=== PATIENT | female | born 1990 | race Caucasian/White ===

== ENCOUNTER 2017-10-18 17:43 | Emergency (ER) | payer BC ==
[2017-10-18 20:03] LABS: ABS Basophils 0.1 10^3/ul (0-0.2); ABS Eosinophils 0.1 10^3/ul (0-0.6); ABS Lymphocytes 2.3 10^3/ul (1.0-4.8); ABS Monocytes 0.5 10^3/ul (0-0.8); ABS Neutrophils 5.3 10^3/ul (1.5-7.7); ABS Nucleated RBC 0 10^3/ul; Eosinophil % 1.5 % (0-6); Hematocrit 42 % (35-47); Hemoglobin 14.4 g/dl (12.0-16.0); Mean Corpuscular HGB Conc 34 g/dl (31-36); Mean Corpuscular Hemoglobin 29 pg (27-31); Mean Corpuscular Volume 85 fL (80-97); Nucleated Red Blood Cells % 0; Platelet Count 256 10^3/ul (150-450); Red Blood Count 4.97 10^6/ul (4.0-5.4); Red Cell Distribution Width 13 % (10.5-15); White Blood Count 8.4 10^3/ul (3.5-10.8)
[2017-10-18 20:19] LABS: EGFR Non-African American 91.3 (>60)
--- NOTE | 2017-10-18 21:29 | RAD ---
HISTORY: Headache, visual disturbance, papilledema COMPARISONS: None TECHNIQUE: The following sequences were obtained of the head: Sagittal T1-weighted images, axial T2-weighted images, axial FLAIR images, axial susceptibility weighted images, axial T1-weighted images. Additionally, axial diffusion-weighted images were obtained with calculated apparent diffusion coefficients. FINDINGS: HEMORRHAGE/INFARCT: There is no hemorrhage or acute infarct. MASSES/SHIFT: There is no mass or shift. EXTRA-AXIAL SPACES/MENINGES: There are no extra-axial fluid collections. SULCI AND VENTRICLES: The sulci and ventricles are normal in size and position for the patient's stated age. CEREBRUM: There are no focal parenchymal abnormalities. BRAINSTEM: There are no focal parenchymal abnormalities. CEREBELLUM: There are no focal parenchymal abnormalities. The cerebellar tonsils are normal in size and position. SELLA: The sella is normal. PINEAL: The pineal region is clear. CP ANGLE/TEMPORAL BONES: The labyrinthine structures are grossly normal. VESSELS: Normal flow-voids are noted within the visualized vertebral vasculature. DIFFUSION ABNORMALITIES: There are no diffusion abnormalities. PARANASAL SINUSES/MASTOIDS: The paranasal sinuses are clear. ORBITS: The optic nerves are not well evaluated on this generic brain protocol MRI; however, there is no appreciable abnormal signal within the visualized portion of the optic nerves. There is no retrobulbar mass. BONES AND SOFT TISSUE: No bone or soft tissue abnormalities are noted. OTHER: None IMPRESSION: NORMAL BRAIN
--- NOTE | 2017-10-18 21:32 | RAD ---
HISTORY: Headache, visual disturbance, papilledema COMPARISONS: MRI of the brain dated October 18, 2012 TECHNIQUE: Multiple 3-D phase contrast MR venography was performed, with multiple 3-D maximum intensity projection reconstructions. FINDINGS: VENOUS SINUSES: The venous sinuses are patent. There is no stenosis or occlusion. A filling defect of the right transverse sinus is felt to represent an arachnoid granulation. DEEP VEINS: The deep veins are patent. The internal cerebral veins are dominant over the basal veins of [place]. OTHER FINDINGS: None IMPRESSION: NO VENOUS SINUS THROMBOSIS OR OCCLUSION
--- NOTE | 2017-10-18 21:34 | RAD ---
HISTORY: Headache, visual disturbance, papilledema COMPARISONS: MRI of the brain dated October 18, 2014 TECHNIQUE: 3-D axial [id number] MR angiography was performed of the head to include the ute of Silva. Multiple 3-D maximum intensity projection reconstructions are also submitted for review. FINDINGS: RIGHT VERTEBRAL ARTERY: The distal right vertebral artery is unremarkable, without stenosis. LEFT VERTEBRAL ARTERY: The distal left vertebral artery is unremarkable, without stenosis. DOMINANCE: The vertebral arteries are codominant. DISTAL RIGHT CERVICAL INTERNAL CAROTID ARTERY: The distal right cervical internal carotid artery is unremarkable. DISTAL LEFT CERVICAL INTERNAL CAROTID ARTERY: The distal left cervical internal carotid artery is unremarkable. INTRACRANIAL CIRCULATION: There is no aneurysm, vascular malformation, occlusion, or stenosis of the visualized intracranial circulation. The anterior communicating artery complex is clear. Bilateral posterior communicating arteries are identified. OTHER FINDINGS: None IMPRESSION: NO ANEURYSM, VASCULAR MALFORMATION, OCCLUSION, OR STENOSIS OF THE VISUALIZED INTRACRANIAL CIRCULATION.
[2017-10-18] MEDS ORDERED: Lidocaine 2% PF * 5 ML VIAL ONE (22:34)
[2017-10-18] MEDS ORDERED: acetaZOLAMIDE TAB* 250 MG PO ONE (23:12)
--- NOTE | 2017-10-18 23:20 | ED ---
Marquez Rice Stephanie, scribed for Nickolas Gardner MD on 10/18/17 at 1944 . Throat Pain/Nasal Congestion - HPI Summary HPI Summary: The pt is a 26 y/o F presenting to the ED with c/o vision problems that began approximately 3 months ago. The pt states her symptoms began with migraines and nausea. She then began to develop vision changes in her R eye that would occur when standing up from a sitting position or initiated by change in light. She states her vision would begin to get fuzzy, appear as a cloud, and she would experience tunnel vision almost exclusively in her R eye but sometimes in her L eye that would last about 15 seconds to return to normal vision. She states she went to the eye doctor today who informed her that she had unspecified papilledema. The pt reports she was previously on prednisone to treat an allergic reaction to saldivar that began on September 06 2017. She reports hx of nausea at least 2x per week after dinner. She states a few weeks ago she experienced neck stiffness on her L side that lasted about 4 days. [facility] 10/11/17. The pt denies slurred speech, difficulty with ambulation, unsteady gait and LE and UE weakness. - History of Current Complaint Chief Complaint: EDEyeProblem Time Seen by Provider: 10/18/17 19:20 Hx Obtained From: Patient Onset/Duration: Gradual Onset, Lasting Weeks, Still Present Severity: Moderate - Allergies/Home Medications Allergies/Adverse Reactions: Allergies Allergy/AdvReac Type Severity Reaction Status Date / Time No Known Allergies Allergy Verified 01/10/14 10:49 Home Medications: Home Medications LevoCETirizine TAB (NF) [Xyzal TAB (NF)] 5 mg PO QPM 10/18/17 [History Confirmed 10/18/17] Minocycline (NF) 100 mg PO BID WITH MEALS 10/18/17 [History Confirmed 10/18/17] metFORMIN* [Glucophage 500 MG TAB *] 1,000 mg PO BID 10/18/17 [History Confirmed 10/18/17] PMH/Surg Hx/FS Hx/Imm Hx Endocrine/Hematology History: Reports: Hx Anemia - ON IRON FOR Denies: Hx Diabetes, Hx Thyroid Disease Cardiovascular History: Denies: Hx Hypertension Respiratory History: Reports: Hx Pneumonia Denies: Hx Asthma, Hx Chronic Obstructive Pulmonary Disease (COPD) GI History: Denies: Hx Ulcer Musculoskeletal History: Reports: Hx Back Problems Sensory History: Reports: Hx Contacts or Glasses - WILL WEAR GLASSES DAY OF SURGERY Denies: Hx Hearing Aid Opthamlomology History: Reports: Hx Contacts or Glasses - WILL WEAR GLASSES DAY OF SURGERY Psychiatric History: Reports: Hx Depression - NO MEDICATION FOR - Surgical History Surgery Procedure, Year, and Place: rt wrist surgery-[facility] Hx Anesthesia Reactions: No - Immunization History Date of Tetanus Vaccine: Up to Date Date of Influenza Vaccine: None Infectious Disease History: No Infectious Disease History: Denies: Hx Hepatitis, Hx Human Immunodeficiency Virus (HIV), Traveled Outside the [place] in Last 30 Days - Family History Known Family History: Negative: Renal Disease - Social History Occupation: Employed Full-time Lives: With Family Alcohol Use: Weekly Hx Substance Use: No Substance Use Type: Reports: None Hx Tobacco Use: No Smoking Status (MU): Never Smoked Tobacco Have You Smoked in the Last Year: No Review of Systems Negative: Fever Positive: Blurred Vision Positive: Nausea Neurological: Negative - unsteady gait Negative: Weakness - LE and UE, Slurred Speech All Other Systems Reviewed And Are Negative: Yes Physical Exam - Summary Physical Exam Summary: Appearance: Well-appearing, Well-nourished, lying in bed comfortably Skin: Warm, dry, no obvious rash Eyes: sclera anicteric, no conjunctiva pallor, Nystagmus in both directions, papilledema ENT: mucous membranes moist, pharynx appears normal Neck: Supple, nontender Respiratory: Clear to auscultation, no signs of respiratory distress Cardiovascular: Normal S1, S2. No murmurs. Normal distal pulses in tibial and radial bilaterally. Abdomen: Soft, nontender, normal active bowel sounds present Musculoskeletal: Normal, Strength/ROM Intact Neurological: A&Ox3, awake and alert, mentation is normal, speech is fluent and appropriate Psychiatric: affect is normal, does not appearing anxious or depressed Triage Information Reviewed: Yes Vital Signs On Initial Exam: Initial Vitals Temp Pulse Resp BP Pulse Ox 98.7 F 86 16 136/90 100 10/18/17 17:45 10/18/17 17:45 10/18/17 17:45 10/18/17 17:45 10/18/17 17:45 Vital Signs Reviewed: Yes Procedures - Lumbar Puncture Position: Other - R lateral Aseptic Technique: Lidocaine Anesthesia Used: 2.0% Lido Spinal Needle Used: 22 Gauge - 2.5 inch Lumbar Puncture Note: Initial pressure of 360 mm water, drained 25 mL spinal fluid, final pressure: 210 mm water Diagnostics - Vital Signs Vital Signs Temp Pulse Resp BP Pulse Ox 10/18/17 19:11 77 126/90 98 10/18/17 19:00 95 99 10/18/17 18:40 88 138/88 97 10/18/17 18:39 87 97 10/18/17 17:45 98.7 F 86 16 136/90 100 - Laboratory Lab Results: Lab Results 10/18/17 10/18/17 Range/Units 19:56 19:56 WBC 8.4 (3.5-10.8) 10^3/ul RBC 4.97 (4.0-5.4) 10^6/ul Hgb 14.4 (12.0-16.0) g/dl Hct 42 (35-47) % MCV 85 (80-97) fL MCH 29 (27-31) pg MCHC 34 (31-36) g/dl RDW 13 (10.5-15) % Plt Count 256 (150-450) 10^3/ul MPV 8.0 (7.4-10.4) um3 Neut % (Auto) 63.6 (38-83) % Lymph % (Auto) 28.0 (25-47) % [place] % (Auto) 5.5 (0-7) % Eos % (Auto) 1.5 (0-6) % Baso % (Auto) 1.4 (0-2) % Absolute Neuts (auto) 5.3 (1.5-7.7) 10^3/ul Absolute Lymphs (auto) 2.3 (1.0-4.8) 10^3/ul Absolute Monos (auto) 0.5 (0-0.8) 10^3/ul Absolute Eos (auto) 0.1 (0-0.6) 10^3/ul Absolute Basos (auto) 0.1 (0-0.2) 10^3/ul Absolute Nucleated RBC 0 10^3/ul Nucleated RBC % 0 Sodium 136 L (139-145) mmol/L Potassium TNP Chloride 103 (101-111) mmol/L Carbon Dioxide 25 (22-32) mmol/L Anion Gap 8 (2-11) mmol/L BUN 11 (6-24) mg/dL Creatinine 0.77 (0.51-0.95) mg/dL Est GFR ( Amer) 117.5 (>60) Est GFR (Non-Af Amer) 91.3 (>60) BUN/Creatinine Ratio 14.3 (8-20) Glucose 97 (70-100) mg/dL Calcium 9.9 (8.6-10.3) mg/dL Total Bilirubin 0.80 (0.2-1.0) mg/dL AST TNP ALT 60 H (7-52) U/L Alkaline Phosphatase 86 (34-104) U/L Total Protein 7.6 (6.4-8.9) g/dL Albumin 4.5 (3.2-5.2) g/dL Globulin 3.1 (2-4) g/dL Albumin/Globulin Ratio 1.5 (1-3) TSH 2.75 (0.34-5.60) mcIU/mL Beta HCG, Quant < 0.60 mIU/mL Result Diagrams: 10/18/17 19:56 10/18/17 19:56 Lab Statement: Any lab studies that have been ordered have been reviewed, and results considered in the medical decision making process. - Radiology Brain MRI Xray Interpretation: No Acute Changes Radiology Interpretation Completed By: Radiologist - NORMAL BRAIN. ED physician has reviewed this report. Head MRA Xray Interpretation: No Acute Changes Radiology Interpretation Completed By: Radiologist - NO ANEURYSM, VASCULAR MALFORMATION, OCCLUSION, OR STENOSIS OF THE VISUALIZED INTRACRANIAL CIRCULATION. ED physician has reviewed this report. Head MRI Xray Interpretation: No Acute Changes Radiology Interpretation Completed By: Radiologist - NO VENOUS SINUS THROMBOSIS OR OCCLUSION. ED physician has reviewed this report. Re-Evaluation - Re-Evaluation First Eval Re-Evaluation Time: 19:49 Change: Unchanged Second Eval Re-Evaluation Time: 22:16 Change: Unchanged - ED physician discussed results of imaging with the pt. Third Eval Re-Evaluation Time: 23:13 Change: Unchanged - ED physician discussed plan of discharge with the pt and the pt understands and agrees. EENT Course/Dx - Diagnoses Provider Diagnoses: Pseudotumor cerebri - Provider Notifications Discussed Care Of Patient With: Cyrus Kunz Time Discussed With Above Provider: 19:38 Discharge - Sign-Out/Discharge Documenting (check all that apply): Discharge/Admit/Transfer - Discharge Plan Condition: Good Disposition: HOME Prescriptions: acetaZOLAMIDE TAB* [Diamox TAB*] 250 mg PO BID #60 tab Patient Education Materials: Idiopathic Intracranial Hypertension (ED) Referrals: Viky Myles MD [Primary Care Provider] - Cyrus Kunz MD [Medical Doctor] - - Billing Disposition and Condition Condition: GOOD Disposition: HOME The documentation as recorded by the Marquez clemente Stephanie accurately reflects the service I personally performed and the decisions made by me, Nickolas Gardner MD.
[2017-10-19 00:18] VITALS: BP 125/83
== END 2017-10-19 00:18 | disposition home or self-care (01) ==
LOC: ED 17:43
DX: G93.2 Benign intracranial hypertension (principal)
CPT/HCPCS: 36415; 62270; 70544; 70551; 80053; 82945; 84157; 84443; 84702; 85025; 87070; 87205; 89051; 99283; A9270-GY

== ENCOUNTER 2017-11-05 15:00 | Emergency (ER) | payer BC ==
[2017-11-05] MEDS ORDERED: Lidocaine 2% 10 ML* VIAL INJ ONE (19:03)
--- NOTE | 2017-11-05 19:08 | ED ---
Headache - HPI Summary HPI Summary: Pt seen by myself a few weeks ago for IIH, had LP with drainage of fluid and subsequent improvement of symptoms. Presents now with gradual recurrence of headache and increasing amounts of spells of visual disturbance. No nausea or vomiting, nothing making it better or worse. Pt sent in by her neurologist for repeat LP and CSF drainage. - History Of Current Complaint Chief Complaint: EDGeneral Stated Complaint: HEADACHES/BLURRY VISION Time Seen by Provider: 11/05/17 18:20 Hx Last Menstrual Period: 11/20/13 - Risk Factors SAH Risk Factors: Negative Meningitis Risk Factors: Negative - Allergies/Home Medications Allergies/Adverse Reactions: Allergies Allergy/AdvReac Type Severity Reaction Status Date / Time No Known Allergies Allergy Verified 01/10/14 10:49 PMH/Surg Hx/FS Hx/Imm Hx Endocrine/Hematology History: Reports: Hx Anemia - ON IRON FOR Denies: Hx Diabetes, Hx Thyroid Disease Cardiovascular History: Denies: Hx Hypertension, Hx Pacemaker/ICD Respiratory History: Reports: Hx Pneumonia Denies: Hx Asthma, Hx Chronic Obstructive Pulmonary Disease (COPD) GI History: Denies: Hx Ulcer Musculoskeletal History: Reports: Hx Back Problems Sensory History: Reports: Hx Contacts or Glasses - WILL WEAR GLASSES DAY OF SURGERY Denies: Hx Hearing Aid Opthamlomology History: Reports: Hx Contacts or Glasses - WILL WEAR GLASSES DAY OF SURGERY Neurological History: Reports: Other Neuro Impairments/Disorders - IIH Psychiatric History: Reports: Hx Depression - NO MEDICATION FOR Denies: Hx Panic Disorder - Surgical History Surgery Procedure, Year, and Place[place] [place] Anesthesia Reactions: No - Immunization History Date of Tetanus Vaccine: Up to Date Date of Influenza Vaccine: None Infectious Disease History: No Infectious Disease History: Denies: Hx Hepatitis, Hx Human Immunodeficiency Virus (HIV), Traveled Outside the [place] in Last 30 Days - Family History Known Family History: Negative: Renal Disease - Social History Alcohol Use: Weekly Hx Substance Use: No Substance Use Type: Reports: None Hx Tobacco Use: No Smoking Status (MU): Never Smoked Tobacco Have You Smoked in the Last Year: No Review of Systems Constitutional: Negative Positive: Fever Eyes: Other Positive: Blurred Vision ENT: Negative Negative: Epistaxis, Sore Throat Cardiovascular: Negative Negative: Palpitations, Chest Pain Respiratory: Negative Negative: Shortness Of Breath Negative: Abdominal Pain, Vomiting Positive: Headache. Negative: Weakness, Paresthesia, Numbness Negative: Anxious, Depressed All Other Systems Reviewed And Are Negative: Yes Physical Exam Triage Information Reviewed: Yes Vital Signs On Initial Exam: Initial Vitals Temp Pulse Resp BP Pulse Ox 36.6 C 70 20 118/70 98 11/05/17 15:05 11/05/17 15:05 11/05/17 15:05 11/05/17 15:05 11/05/17 15:05 Vital Signs Reviewed: Yes Appearance: Positive: Well-Appearing Skin: Positive: Warm, Skin Color Reflects Adequate Perfusion, Dry Head/Face: Positive: Normal Head/Face Inspection Eyes: Positive: EOMI, DAYSI ENT: Positive: Normal ENT inspection, Hearing grossly normal Neck: Positive: Supple, Nontender, No Lymphadenopathy Respiratory/Lung Sounds: Positive: Clear to Auscultation, Breath Sounds Present Cardiovascular: Positive: Normal, RRR Abdomen Description: Positive: Nontender Musculoskeletal: Positive: Strength/ROM Intact Neurological: Positive: Sensory/Motor Intact, Alert, Oriented to Person Place, Time, CN Intact II-III Psychiatric: Positive: Affect/Mood Appropriate Procedures - Lumbar Puncture Left Position: Lateral Decubitus Aseptic Technique: Local Anesthesia Anesthesia Used: 2.0% Lido Spinal Needle Used: 22 Gauge Lumbar Puncture Note: OP 280 mm H2O, drained approx 8 cm clear colorless CSF, CP 160 mm H2O Diagnostics - Vital Signs Vital Signs Temp Pulse Resp BP Pulse Ox 11/05/17 17:00 36.6 C 78 20 121/82 98 11/05/17 15:05 36.6 C 70 20 118/70 98 - Laboratory Lab Statement: Any lab studies that have been ordered have been reviewed, and results considered in the medical decision making process. Headache Course/Dx - Diagnoses Provider Diagnoses: Idiopathic intracranial hypertension Discharge - Sign-Out/Discharge Documenting (check all that apply): Discharge/Admit/Transfer - Discharge Plan Condition: Good Disposition: HOME Referrals: Viky Myles MD [Primary Care Provider] - Cyrus Kunz MD [Medical Doctor] - - Billing Disposition and Condition Condition: GOOD Disposition: HOME
[2017-11-05] MEDS ORDERED: Lidocaine 2% PF * 5 ML VIAL ONE (19:22)
[2017-11-05] MEDS ORDERED: Lidocaine 2% PF * 5 ML VIAL INJ ONE (20:39)
[2017-11-05 20:45] VITALS: BP 133/87
== END 2017-11-05 20:44 | disposition home or self-care (01) ==
LOC: ED 15:00
DX: G93.2 Benign intracranial hypertension (principal); D64.9 Anemia, unspecified; F32.9 Major depressive disorder, single episode, unspecified
CPT/HCPCS: 62270; 99282